=== PATIENT | female | born 1950 | race Caucasian/White ===

== ENCOUNTER → 2017-03-19 | Outpatient (CLI) | payer MEDICARE ==
[2017-03-19 08:45] LABS: CH 30.3; CHCM 33.1; HCT 37.9 % (34.0-46.0); HDW 2.53; HGB 12.3 gm/dL (11.4-16.0); MCH 29.9 pg (25.0-35.0); MCHC 32.4 g/dL (31.0-37.0); MCV 92.1 fL (80.0-100.0); Mean Platelet Volume 6.5; RBC 4.12 m/uL (3.80-5.40); RDW 12.8 % (11.5-15.5); WBC 7.3 k/uL (3.8-10.6)
[2017-03-19 09:03] LABS: Anion Gap 13 mmol/L; Blood Urea Nitrogen 15 mg/dL (7-17); Calcium 9.4 mg/dL (8.4-10.2); Carbon Dioxide 26 mmol/L (22-30); Chloride 100 mmol/L (98-107); Glucose 116 mg/dL (74-99); Non-African American GFR(MDRD) >60 (>60 ml/min/1.73 sqM); Potassium 4.4 mmol/L (3.5-5.1); Sodium 139 mmol/L (137-145)
== END | disposition home or self-care (01) ==
LOC: LABWHC1 08:06
PROVIDERS: ATTEND Internal Medicine Interventional Cardiology
DX: I10 Essential (primary) hypertension (principal)
CPT/HCPCS: 36415; 80048; 85027

== ENCOUNTER → 2017-03-31 | Outpatient (CLI) | payer MEDICARE ==
--- NOTE | 2017-03-31 21:23 | WWHP ---
DATE OF SERVICE: 03/31/2017 CHIEF COMPLAINT: Patient is here for her routine gynecologic exam and mammogram. HPI: This is a 66-year-old G5 G4, P0 with an LMP of 2005. The patient is without gynecologic complaints and denies any postmenopausal bleeding. PAST MEDICAL HISTORY: Chronic hypertension, elevated cholesterol, diverticulosis, aortic aneurysm, which is followed conservatively. Dr. Tinsley is her underwriting technician and she is currently in between primary care physicians in this area. She does have a primary care physician in [place]. MEDICATIONS: 1. Coreg generic 6.25 mg b.i.d. 2. Cozaar generic 100 mg daily. 3. Hydrochlorothiazide 25 mg daily. 4. Atorvastatin 40 mg daily. 5. Aspirin 81 mg daily. 6. Calcium 500 mg b.i.d. 7. Multivitamins daily. ALLERGIES: No known drug allergies. 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 SOCIAL HISTORY: She quit smoking in 1987 and has about 7 to 14 alcoholic drinks per week and denies drug use. She has been since 1972 and is retired. [place] REVIEW OF SYSTEMS: Weight has been stable. She denies respiratory, cardiac, or GI problems. She denies maltreatment or falling. : She denies any problems with urinary incontinence. PHYSICAL EXAM: Blood pressure 136/82. Height 5 feet 7 inches. Weight 254 pounds. Temperature 97.9, pulse 70. This a well-developed, heavyset white female who is alert and oriented x3 in no acute distress. HEENT is within normal limits. NECK: Supple without mass or thyromegaly. CHEST AND LUNGS: Clear to auscultation. HEART: Regular rate and rhythm. Breasts are without mass or discharge. ABDOMEN: Soft, nontender, without palpable masses. PELVIC EXAM: External genitalia reveals mild to moderate atrophy without lesions. Cervix and vagina reveal mild atrophy without lesions. There is no evidence of prolapse. The uterus is midposition, nongravid size and nontender. There are no palpable adnexal masses or tenderness. Rectovaginal exam is negative for mass or tenderness and is negative for occult blood. EXTREMITIES: Nontender. IMPRESSION: A 66-year-old menopausal female with normal gynecologic exam. PLAN: 1. Pap smear was deferred, since she had a normal one less than 2 years ago. 2. Self-breast examination was discussed. 3. Mammogram will be done today. 4. Osteoporosis prevention was discussed. She had a normal bone density test in 2014 and will repeat this in approximately 6 years. 5. I have recommended that she establish with a primary care physician in this area. 6. She will return in one year.
--- NOTE | 2017-04-01 11:44 | MM ---
Reason for exam: screening (asymptomatic). Last mammogram was performed 1 year and 8 months ago. History: Patient is postmenopausal and is nulliparous. Physical Findings: A clinical breast exam by your physician is recommended on an annual basis and results should be correlated with mammographic findings. MG 3D Screening Mammo W/Cad Bilateral CC and MLO view(s) were taken. Prior study comparison: August 06, 2015, bilateral MG screening mammo w CAD. August 09, 2013, bilateral digital screening mammo w/CAD. August 08, 2012, bilateral digital screening mammo w/CAD. Finding: There are typically benign round, diffuse/scattered calcifications in both breasts, group of calcifications middle depth outer aspect slight upper quadrant. New finding and increase in number of calcifications since August 06, 2015, August 09, 2013, and August 08, 2012. ASSESSMENT: Incomplete: need additional imaging evaluation, BI-RAD 0 RECOMMENDATION: Special view mammogram of the right breast. [facility] will attempt to contact patient to return for supplemental views.
== END | disposition home or self-care (01) ==
LOC: WWCWWP 09:48
PROVIDERS: ATTEND Obstetrics & Gynecology
DX: Z12.31 Encounter for screening mammogram for malignant neoplasm of breast (principal)
CPT/HCPCS: 77063; G0202

== ENCOUNTER → 2017-04-02 | Outpatient (CLI) | payer MEDICARE ==
--- NOTE | 2017-04-05 07:20 | MM ---
Reason for exam: additional evaluation requested from abnormal screening. Last mammogram was performed less than 1 month ago. History: Patient is postmenopausal and is nulliparous. Physical Findings: Nurse did not find any significant physical abnormalities on exam. MG 3D Work Up W/Cad RT LM view(s) were taken of the right breast. Prior study comparison: March 31, 2017, bilateral MG 3d screening mammo w/cad. August 06, 2015, bilateral MG screening mammo w CAD. Finding: There are increasing regional calcifications in the right breast. Increase in number of calcifications since March 31, 2017 and August 06, 2015. These results were verbally communicated with the patient and result sheet given to the patient on 04/02/17. ASSESSMENT: Suspicious, BI-RAD 4 RECOMMENDATION: Stereotactic core biopsy of the right breast. Called Dr. Brand with mammographic findings and has scheduled an appointment for the patient for 05/09/17 at 10:[address] Bruno Biopsy scheduled 04/08/17 at 10:00. PRELIMINARY REPORT CALLED AND FAXED TO DR. BRUNO ON 07/11 AT 300/TMP.
== END | disposition home or self-care (01) ==
LOC: RADMAMWWP 10:53
PROVIDERS: ATTEND Obstetrics & Gynecology
DX: R92.8 Other abnormal and inconclusive findings on diagnostic imaging of breast (principal)
CPT/HCPCS: G0206; G0279

== ENCOUNTER → 2017-04-08 | Day surgery (SDC) | payer MEDICARE ==
[2017-04-08 10:31] VITALS: BMI 39.1
--- NOTE | 2017-04-08 12:17 | MM ---
EXAMINATION TYPE: MG stereo VAD BX RT DATE OF EXAM: 04/08/2017 COMPARISON: 04/02/2017, 03/31/2017 CLINICAL HISTORY: Right breast calcification TECHNIQUE: Stereotactic guided core biopsy of right breast. FINDINGS: The procedure of stereotactic guided core biopsy was explained to the patient. Benefits, alternatives, and risks were discussed. An informed consent was then obtained. The shortness pathway for biopsy was chosen. Shortness pathway was chosen. Localization and procedure performed by radiologist. A vacuum assisted biopsy gun was used to obtain multiple core samples. The patient tolerated the procedure well without any immediate complication. The patient was kept in the radiology department for short stay after the procedure and then discharged home in stable condition. Targeted calcifications are identified in specimen mammogram. Post biopsy mammogram shows the clip to appear in satisfactory position relative to the targeted area of concern on the preprocedure images. IMPRESSION: SUCCESSFUL, UNCOMPLICATED STEREOTACTIC GUIDED CORE BIOPSY OF AREA OF CONCERN IN THE right BREAST, FULL PATHOLOGY RESULTS TO FOLLOW. Pathology Results: Benign BREAST, RIGHT, STEREOTACTIC CORE BIOPSY: BENIGN BREAST WITH PROMINENT ADIPOSE TISSUE DEMONSTRATING FAT NECROSIS, FIBROSIS, FIBROPLASIA, VASCULAR PROLIFERATION AND LYMPHOHISTIOCYTIC INFLAMMATION FOCALLY WITH PIGMENT. A SINGLE CALCIFICATION IS IDENTIFIED. PENDING DEEPER SECTIONS. ADDENDUM REPORT BREAST, RIGHT, STEREOTACTIC CORE BIOPSY: BENIGN BREAST WITH PROMINENT ADIPOSE TISSUE DEMONSTRATING FAT NECROSIS, FIBROSIS, FIBROPLASIA, VASCULAR PROLIFERATION , LYMPHOHISTIOCYTIC INFLAMMATION FOCALLY WITH PIGMENT, AND CALCIFICATIONS. Recommendation Follow up mammogram of the right breast in 6 months. MTDD
[2017-04-08 12:19] VITALS: BP 108/71; PULSE 68; RESP 16; TEMP 97.7
== END ==
LOC: RADMAMWWP 09:23
PROVIDERS: ATTEND Surgery
DX: N64.1 Fat necrosis of breast (principal); N60.31 Fibrosclerosis of right breast; N64.89 Other specified disorders of breast; R92.8 Other abnormal and inconclusive findings on diagnostic imaging of breast
CPT/HCPCS: 88305; 19081; A4648

== ENCOUNTER → 2018-03-14 | Outpatient (CLI) | payer MEDICARE ==
[2018-03-14 07:29] LABS: HGB 12.7 gm/dL (11.4-16.0); MCH 28.8 pg (25.0-35.0); MCHC 32.4 g/dL (31.0-37.0); MCV 88.8 fL (80.0-100.0); Mean Platelet Volume 6.7; Platelet Count 298 k/uL (150-450); RBC 4.39 m/uL (3.80-5.40); RDW 13.5 % (11.5-15.5); WBC 7.7 k/uL (3.8-10.6)
[2018-03-14 07:47] LABS: Anion Gap 11 mmol/L; Blood Urea Nitrogen 18 mg/dL (7-17); Calcium 9.9 mg/dL (8.4-10.2); Carbon Dioxide 30 mmol/L (22-30); Chloride 100 mmol/L (98-107); Cholesterol 177 mg/dL (<200); Glucose 114 mg/dL (74-99); HDL Cholesterol 62 mg/dL (40-60); LDL Cholesterol,Calculated 84 mg/dL (0-99); Potassium 4.6 mmol/L (3.5-5.1); Sodium 141 mmol/L (137-145); Triglycerides 157 mg/dL (<150)
== END | disposition home or self-care (01) ==
LOC: LABWHC1 07:06
PROVIDERS: ATTEND Internal Medicine Interventional Cardiology
DX: E78.2 Mixed hyperlipidemia (principal)
CPT/HCPCS: 36415; 80048; 80061; 85027

== ENCOUNTER 2018-04-20 18:58 | Emergency (ER) | payer MEDICARE ==
[2018-04-20 19:39] VITALS: RESP 18
--- NOTE | 2018-04-20 20:45 | XR ---
PROCEDURE: XR shoulder complete LT 3 views DATE AND TIME: 04/20/2018 8:38 PM REFERRING PHYSICIAN: Carlito Myles CLINICAL INDICATION: PHH, Pain TECHNIQUE: Department protocol. COMPARISON: None FINDINGS: There is a dislocated fracture involving the anatomic neck of the humerus. The humeral head remains congruent within the bony glenoid. There is one shaft width anteromedial displacement of the humeral shaft, with 2 cm override. The acromioclavicular joint is congruent and intact. No other fractures. IMPRESSION: FRACTURE/DISLOCATION LEFT HUMERAL NECK.
--- NOTE | 2018-04-20 20:49 | ED ---
General Adult HPI - General Chief complaint: Fall Stated complaint: LEFT SHOULDER INJURY FROM FALL Time Seen by Provider: 04/20/18 20:28 Source: patient, RN notes reviewed Mode of arrival: wheelchair Limitations: no limitations - History of Present Illness Initial comments: Patient's a 67-year-old female presented to the emergency room today with a chief complaint of an injury to the left shoulder. She does admit that approximately an hour before arrival she tripped on a rug coming into the house falling forward into a wall hitting the left shoulder. She denies any specific head injury or loss of consciousness. She states she's not on a blood thinner. She admits to pain locally to the left shoulder. Patient denies any other complaints or symptoms. Patient denies any recent fever, chills, shortness of breath, chest pain, back pain, nausea or vomiting, numbness or tingling, headaches or visual changes, or any other complaints. - Related Data Home Medications Medication Instructions Recorded Confirmed Aspirin [Adult Low Dose Aspirin EC] 81 mg PO DAILY 04/07/17 04/20/18 Atorvastatin [Lipitor] 40 mg PO HS 04/07/17 04/20/18 Carvedilol [Coreg] 6.25 mg PO HS 04/07/17 04/20/18 Losartan Potassium 1 tab PO DAILY 04/07/17 04/20/18 Milk Thistle 150 mg PO DAILY 04/07/17 04/20/18 Multivitamin [Multiple Vitamins] 1 each PO DAILY 04/07/17 04/20/18 [place]-3 Fatty Acids/Fish Oil [Fish 1 each PO DAILY 04/07/17 04/20/18 Oil 1,000 mg Capsule] Calcium Carbonate/Vitamin D3 1 tab PO DAILY 04/20/18 04/20/18 [Calcium 500-Vit D3 600 Tablet] Cyanocobalamin (Vitamin B-12) 1,000 mcg PO DAILY 04/20/18 04/20/18 [Vitamin B-12] Hydrochlorothiazide 25 mg PO DAILY 04/20/18 04/20/18 Previous Rx's Medication Instructions Recorded Hydrocodone/Acetaminophen [[place] 1 each PO Q6HR PRN #12 tab 04/20/18 5-325] Allergies Allergy/AdvReac Type Severity Reaction Status Date / Time No Known Allergies Allergy Verified 04/20/18 20:13 Review of Systems ROS Statement: Those systems with pertinent positive or pertinent negative responses have been documented in the HPI. ROS Other: All systems not noted in ROS Statement are negative. Past Medical History Past Medical History: Hypertension History of Any Multi-Drug Resistant Organisms: None Reported Past Surgical History: Orthopedic Surgery Additional Past Surgical History / Comment(s): cataracts 2013. Knee surgery 2005 and 2008 Past Anesthesia/Blood Transfusion Reactions: No Reported Reaction Past Psychological History: No Psychological Hx Reported Smoking Status: Never smoker Past Alcohol Use History: Occasional Past Drug Use History: None Reported General Exam - General Exam Comments Initial Comments: General: The patient is awake and alert, in no distress, and does not appear acutely ill. Neck: The neck is supple, there is no tenderness or JVD. Cardiovascular: There is a regular rate and rhythm. No murmur, rub or gallop is appreciated. Respiratory: Lungs are clear to auscultation, respirations are non-labored, breath sounds are equal. No wheezes, stridor, rales, or rhonchi. Musculoskeletal: Patient does have tenderness over the proximal humerus on the left. Sensations are intact. Radial pulses 2+. Patient shows good range of motion of the left wrist and hand able to flex and extend. Neurological: A&O x 3. CN II-XII intact, There are no obvious motor or sensory deficits. Coordination appears grossly intact. Speech is normal. Skin: Skin is warm and dry and no rashes or lesions are noted. Psychiatric: Normal mood and affect. Limitations: no limitations Course Vital Signs 04/20/18 19:36 Temperature 98.4 F Pulse Rate 72 Respiratory 18 Rate Blood Pressure 121/81 O2 Sat by Pulse 92 L Oximetry Medical Decision Making - Medical Decision Making Patient's x-rays reviewed and does show a proximal humerus fracture with displacement at the anatomical neck. Case was discussed with orthopedics on- call Dr. Phillip who reviewed the films and recommends a shoulder immobilizer and discharged the patient to follow-up the office over the next 2 days. Patient given dose of pain medication here in the ER given shoulder immobilizer. Patient is neurovascularly intact. Will be sent home with a prescription for [place] for pain. Patient advised to follow-up with orthopedics and return for any other concerns. Disposition Clinical Impression: Fall, Proximal humerus fracture Disposition: HOME SELF-CARE Condition: Good Instructions: Proximal Humerus Fracture (ED) Additional Instructions: Please follow-up with orthopedics tomorrow as discussed. Please use shoulder immobilizer when up and moving around. Please use pain medication as prescribed and return to the emergency room for any other concerns. Prescriptions: Hydrocodone/Acetaminophen [[place] 5-325] 1 each PO Q6HR PRN #12 tab PRN Reason: Pain Is patient prescribed a controlled substance at d/c from ED?: Yes When asked, does pt state using other controlled substances?: No If prescribed controlled substance>3 days was MAPS reviewed?: Prescribed <3 Days If Rx opioid, was Start Talking consent form obtained?: Yes Referrals: Sb Roman MD [Primary Care Provider] - 1-2 days Elías Phillip DO [Doctor of Osteopathic Medicine] - 1-2 days Time of Disposition: 21:34
[2018-04-20] MEDS ORDERED: MORPHINE SULFATE 2 MG/ML SYRINGE IM STA (21:23)
[2018-04-20 22:10] VITALS: BP 145/74; PULSE 74; TEMP 98.6
== END 2018-04-20 22:11 | disposition home or self-care (01) ==
LOC: EC 18:58
DX: S42.292A Other displaced fracture of upper end of left humerus, initial encounter for closed fracture (principal); I10 Essential (primary) hypertension; Z79.82 Long term (current) use of aspirin; Z79.899 Other long term (current) drug therapy; W18.09XA Striking against other object with subsequent fall, initial encounter; Y93.01 Activity, walking, marching and hiking; Y92.89 Other specified places as the place of occurrence of the external cause
CPT/HCPCS: 73030; 99283; 96372; J2270

== ENCOUNTER → 2018-04-25 | Outpatient (CLI) | payer MEDICARE ==
--- NOTE | 2018-04-25 12:47 | CT ---
EXAMINATION TYPE: CT shoulder LT wo con DATE OF EXAM: 04/25/2018 COMPARISON: Left shoulder dated 04/20/2018 HISTORY: Fracture CT DLP: 496 mGycm Automated exposure control for dose reduction was used. Helical acquisition through the left shoulder , coronal and sagittal reconstructions FINDINGS: There is a comminuted proximal humeral fracture with lateral angulation and bayonet apposition. Local soft tissue swelling is present. Distal fracture fragment is inferiorly displaced. No dislocation. IMPRESSION: COMMINUTED DISPLACED FRACTURE NOTED ON PLAIN FILM.
== END | disposition home or self-care (01) ==
LOC: RADCTMAIN 10:21
PROVIDERS: ATTEND Orthopaedic Surgery Orthopaedic Surgery of the Spine
DX: S42.202A Unspecified fracture of upper end of left humerus, initial encounter for closed fracture (principal)

== ENCOUNTER 2018-04-29 08:26 | Day surgery (SDC) | payer MEDICARE ==
[2018-04-26 11:29] VITALS: BMI 39.1
[~2018-04-29 08:26] MED LIST: ACETAMINOPHEN TAB 500 MG TAB PO ONE; DEXAMETHASONE SOD PHOSPHATE 10 MG/ML 1 ML VIAL IV ONE; HYDROmorphone 0.5 MG/0.5 ML SYRINGE IVP PRN; LIDOCAINE 1% 20 ML VIAL (10MG/ML) FOR IV START INTRADERMA PRN; MIDAZOLAM 2 MG/2 ML VIAL IV PRN; ONDANSETRON 4 MG/2 ML VIAL IVP ONE; SCOPOLAMINE 1.5MG/72HR PATCH TRANSDERM ONE; ceFAZolin IN SWFI 2 GM/20 ML SYRINGE IVP ONE
[2018-04-29] MEDS: LACTATED RINGERS 1,000 ML IV SCH (08:46)
[2018-04-29] MEDS ORDERED: fentaNYL (PF) 50 MCG/ML 2 ML AMP ONE ×2 (09:10→10:09)
[2018-04-29] MEDS ORDERED: PHENYLEPHRINE-0.9% NACL SYG 1 MG/10 ML SYRINGE ONE (10:09)
[2018-04-29] MEDS ORDERED: SUCCINYLCHOLINE CHLORIDE 100 MG/5 ML SYR IV ONE (10:09)
[2018-04-29] MEDS ORDERED: GLYCOPYRROLATE 0.2 MG/ML 2 ML VIAL ONE (10:09)
[2018-04-29] MEDS ORDERED: ROCURONIUM BROMIDE 10 MG/ML 10 ML VIAL IV ONE (10:09)
[2018-04-29] MEDS ORDERED: PROPOFOL 10 MG/ML 20 ML VIAL IV ONE (10:09)
[2018-04-29] MEDS ORDERED: NEOSTIGMINE 1 MG/ML 10 ML VIAL ONE (10:09)
[2018-04-29] MEDS ORDERED: ceFAZolin 1,000 MG in SODIUM CHLORIDE 0.9% 1,000 ML IRRIGATION ONE (10:49)
[2018-04-29] MEDS ORDERED: BUPIVACAINE (PF) 0.5% 30 ML VIAL SQ ONE (11:39)
[2018-04-29] MEDS ORDERED: ONDANSETRON 4 MG/2 ML VIAL IVP PRN (12:30)
[2018-04-29] MEDS ORDERED: diphenhydrAMINE 25 MG CAP PO PRN (12:30)
[2018-04-29] MEDS ORDERED: SENNOSIDES-DOCUSATE SODIUM 1 EACH TAB PO PRN (12:30)
[2018-04-29] MEDS ORDERED: HYDROcodone/APAP 5-325MG 1 EACH TAB PO PRN ×2 (12:30)
[2018-04-29] MEDS ORDERED: HYDROmorphone 0.5 MG/0.5 ML SYRINGE IVP PRN ×3 (12:30)
--- NOTE | 2018-04-29 12:45 | FL ---
EXAMINATION TYPE: FL guidance operating room, XR shoulder limited LT DATE OF EXAM: 04/29/2018 COMPARISON: NONE HISTORY: 67-year-old female left shoulder fracture FINDINGS: Imaging during plate and screw fixation of the proximal left humerus. FLUOROSCOPY Fluoroscopy time of 51 seconds was used during plate and screw fixation left shoulder fracture. 2 im age/s document/s the procedure. IMPRESSION: Intraoperative fluoroscopy as above.
[2018-04-29] MEDS ORDERED: CYANOCOBALAMIN 500 MCG TAB PO SCH (15:00)
[2018-04-29] MEDS ORDERED: ceFAZolin 3 GM in SODIUM CHLORIDE 0.9% 100 ML IVPB SCH (16:00)
[2018-04-29] MEDS: ceFAZolin IN SWFI 2 GM/20 ML SYRINGE IVP SCH (16:34)
[2018-04-29] MEDS: CARVEDILOL 6.25 MG TAB PO SCH (16:35)
[2018-04-29] MEDS ORDERED: ATORVASTATIN 40 MG TAB PO SCH (21:00)
--- NOTE | 2018-04-29 23:00 | P.CONS ---
History of Present Illness - Reason for Consult Consult date: 04/29/18 Medical management of hypertension and other medical problems - Chief Complaint Left shoulder surgery - History of Present Illness Patient is a 67-year-old female with a known history of hypertension, hyperlipidemia and history of coronary artery disease was admitted to the hospital for left shoulder rotator cuff repair. Patient had mechanical fall on 04/18/2018 when she slipped and fell. Patient tolerated the procedure. Currently patient is complaining of left shoulder pain which is fairly controlled with pain medications. No chest pain or shortness of breath. No headache or dizziness or lightheadedness. No nausea vomiting or abdominal pain. Review of Systems Constitutional: Patient denies any fever or chills . No generalized weakness or weight loss. Abdomen: Patient denied nausea vomiting and diarrhea and abdominal pain. Cardiovascular: Patient denies any chest pain or short of breath no palpitations. Respiratory: patient denied any cough is from production. No shortness of breath Neurologic: Patient denied any numbness or tingling headache. Musculoskeletal: Left shoulder pain. Skin: Negative Psychiatric: Negative Endocrine: No heat or cold intolerance. No recent weight gain. Genitourinary: No dysuria or hematuria. All other 14 point ROS negative except the above Past Medical History Past Medical History: Hyperlipidemia, Hypertension, Osteoarthritis (OA) Additional Past Medical History / Comment(s): varicose veins, diverticulitis, fell and injured left shoulder 04/18/18-has sling on History of Any Multi-Drug Resistant Organisms: None Reported Past Surgical History: Breast Surgery, Joint Replacement, Tonsillectomy Additional Past Surgical History / Comment(s): sarah knee replacements, hemorrhoidectomy, sarah cataracts, breast biopsy Past Anesthesia/Blood Transfusion Reactions: No Reported Reaction Smoking Status: Former smoker - Past Family History Mother Family Medical History: Cancer Medications and Allergies Home Medications Medication Instructions Recorded Confirmed Type Aspirin [Adult Low Dose Aspirin EC] 81 mg PO DAILY 04/07/17 04/29/18 History Atorvastatin [Lipitor] 40 mg PO HS 04/07/17 04/29/18 History Carvedilol [Coreg] 6.25 mg PO BID 04/07/17 04/29/18 History Milk Thistle 150 mg PO DAILY 04/07/17 04/29/18 History Multivitamin [Multiple Vitamins] 1 each PO DAILY 04/07/17 04/29/18 History [place]-3 Fatty Acids/Fish Oil [Fish 1,000 mg PO DAILY 04/07/17 04/29/18 History Oil 1,000 mg Capsule] Calcium Carbonate/Vitamin D3 1 tab PO DAILY 04/20/18 04/29/18 History [Calcium 500-Vit D3 600 Tablet] Cyanocobalamin (Vitamin B-12) 1,000 mcg PO Q48H 04/20/18 04/29/18 History [Vitamin B-12] Hydrochlorothiazide 25 mg PO DAILY 04/20/18 04/29/18 History Hydrocodone/Acetaminophen [[place] 1 each PO Q6HR PRN #12 tab 04/20/18 04/29/18 Rx 5-325] Cyclobenzaprine [Flexeril] 10 mg PO TID 04/26/18 04/29/18 History Losartan Potassium [Cozaar] 100 mg PO DAILY 04/29/18 04/29/18 History Allergies Allergy/AdvReac Type Severity Reaction Status Date / Time nickel Allergy Rash/Hives Verified 04/29/18 08:38 Physical Exam Vitals: Vital Signs Temp Pulse Pulse Resp BP BP Pulse Ox 04/29/18 13:15 72 18 113/56 98 04/29/18 13:00 78 18 104/56 98 04/29/18 12:45 83 14 114/57 96 04/29/18 12:35 97.7 F 84 16 109/56 98 04/29/18 09:25 80 16 102/49 94 L 04/29/18 08:44 98.1 F 95 16 150/72 94 L Intake and Output 04/28/18 04/29/18 04/29/18 22:59 06:59 14:59 Intake Total 1101 Output Total 200 Balance 901 Intake: IV 1101 Output: Estimated Blood Loss 200 PHYSICAL EXAMINATION: Patient is lying in the bed comfortably, no acute distress, awake alert and oriented.. HEENT: Normocephalic. Neck is supple. Pupils reactive. Nostrils clear. Oral cavity is moist. Ears reveal no drainage. Neck reveals no JVD, carotid bruits, or thyromegaly. CHEST EXAMINATION: Trachea is central. Symmetrical expansion. Bibasilar diminished air entry. Lung barraza clear to auscultation and percussion. CARDIAC: Normal S1, S2 with no gallops. No murmurs ABDOMEN: Soft. Bowel sounds normal. No organomegaly. No abdominal bruits. Extremities: reveal no edema. No clubbing or cyanosis Neurologically awake, alert, oriented x3 with well-coordinated movements. No focal deficits noted Skin: No rash or skin lesions. Psychiatric: Coperative. Nonsuicidal Musculoskeletal: Left shoulder sling status post surgery. Decreased range of motion. Results CBC & Chem 7: 04/29/18 08:47 Labs: Abnormal Lab Results - Last 24 Hours (Table) 04/29/18 Range/Units 08:47 Potassium 3.3 L (3.5-5.1) mmol/L Assessment and Plan Assessment: Fracture/dislocation left humeral neck. Status post ORIF on 04/29/2018 Hypertension Hyperlipidemia Osteoarthritis of multiple joints Coronary artery disease Varicose veins and also history of diverticulitis DVT prophylaxis Plan: Patient be continued on pain management and bowel regimen. DVT prophylaxis. Encourage ambulation. Continue with home blood pressure medications. Will follow closely and further recommendations based on the clinical course. Thank you for your consult Time with Patient: Greater than 30
[2018-04-30] MEDS: ceFAZolin IN SWFI 2 GM/20 ML SYRINGE IVP SCH (01:25)
[2018-04-30] MEDS: LACTATED RINGERS 1,000 ML IV SCH (05:58)
[2018-04-30 06:28] LABS: Basophils % (A) 0 %; Eosinophils # (A) 0.1 k/uL (0-0.7); Eosinophils % (A) 1 %; HCT 31.4 % (34.0-46.0); HGB 10.2 gm/dL (11.4-16.0); Lymphocytes # (A) 1.5 k/uL (1.0-4.8); Lymphocytes % (A) 16 %; MCH 29.1 pg (25.0-35.0); MCHC 32.4 g/dL (31.0-37.0); MCV 89.8 fL (80.0-100.0); Mean Platelet Volume 6.7; Monocytes # (A) 0.7 k/uL (0-1.0); Monocytes % (A) 7 %; Neutrophils # (A) 7.3 k/uL (1.3-7.7); Neutrophils % (A) 75 %; Platelet Count 313 k/uL (150-450); RDW 13.8 % (11.5-15.5); WBC 9.7 k/uL (3.8-10.6)
[2018-04-30 06:34] VITALS: BP 130/82; PULSE 88; RESP 18; TEMP 97.4
[2018-04-30 06:35] LABS: Anion Gap 12 mmol/L; Blood Urea Nitrogen 10 mg/dL (7-17); Calcium 9.4 mg/dL (8.4-10.2); Carbon Dioxide 30 mmol/L (22-30); Chloride 95 mmol/L (98-107); Glucose 108 mg/dL (74-99); Potassium 3.8 mmol/L (3.5-5.1); Sodium 137 mmol/L (137-145)
[2018-04-30] MEDS: CARVEDILOL 6.25 MG TAB PO SCH (08:05)
[2018-04-30] MEDS ORDERED: NON-FORMULARY DRUG (Milk Thistle [Milk Thistle] 150 MG) PO SCH (09:00)
[2018-04-30] MEDS ORDERED: FATTY ACIDS PO SCH (09:00)
[2018-04-30] MEDS ORDERED: LOSARTAN 50 MG TAB PO SCH (09:00)
[2018-04-30] MEDS ORDERED: CALCIUM CARB-VIT D 500MG-200UN 1 EACH TAB PO SCH (09:00)
[2018-04-30] MEDS ORDERED: ENOXAPARIN 30 MG/0.3 ML SYRINGE SQ SCH (09:00)
[2018-04-30] MEDS ORDERED: ASPIRIN 81 MG PO SCH (09:00)
[2018-04-30] MEDS ORDERED: FISH OIL PO SCH (09:00)
[2018-04-30] MEDS ORDERED: OMEGA PO SCH (09:00)
--- NOTE | 2018-04-30 11:28 | P.DS ---
Providers Expected date of discharge: 04/30/18 Attending physician: Jamie Marcos Consults: 04/29/18 12:30 Consult Physician Routine Consulting Provider: Sb Roman Consult Reason/Comments: Medical management Do you want consulting provider notified?: Yes Primary care physician: Stated None Hospital Course: This is a 67-year-old female who is admitted for open reduction internal fixation of the left proximal humerus on 04/29/2018. The procedures performed without complication or sequelae. Patient's doing well postoperatively. Vital signs are stable on postoperative day #1. The patient may be discharged to home today in good condition. Patient Condition at Discharge: Good Plan - Discharge Summary New Discharge Prescriptions: Continue Milk Thistle 150 mg PO DAILY Multivitamin [Multiple Vitamins] 1 each PO DAILY Atorvastatin [Lipitor] 40 mg PO HS Carvedilol [Coreg] 6.25 mg PO BID Aspirin [Adult Low Dose Aspirin EC] 81 mg PO DAILY [place]-3 Fatty Acids/Fish Oil [Fish Oil 1,000 mg Capsule] 1,000 mg PO DAILY Hydrochlorothiazide 25 mg PO DAILY Cyanocobalamin (Vitamin B-12) [Vitamin B-12] 1,000 mcg PO Q48H Calcium Carbonate/Vitamin D3 [Calcium 500-Vit D3 600 Tablet] 1 tab PO DAILY Hydrocodone/Acetaminophen [[place] 5-325] 1 each PO Q6HR PRN #12 tab PRN Reason: Pain Losartan Potassium [Cozaar] 100 mg PO DAILY Discontinued Cyclobenzaprine [Flexeril] 10 mg PO TID Discharge Medication List Aspirin [Adult Low Dose Aspirin EC] 81 mg PO DAILY 04/07/17 [History] Atorvastatin [Lipitor] 40 mg PO HS 04/07/17 [History] Carvedilol [Coreg] 6.25 mg PO BID 04/07/17 [History] Milk Thistle 150 mg PO DAILY 04/07/17 [History] Multivitamin [Multiple Vitamins] 1 each PO DAILY 04/07/17 [History] [place]-3 Fatty Acids/Fish Oil [Fish Oil 1,000 mg Capsule] 1,000 mg PO DAILY 04/07 [History] Calcium Carbonate/Vitamin D3 [Calcium 500-Vit D3 600 Tablet] 1 tab PO DAILY [History] Cyanocobalamin (Vitamin B-12) [Vitamin B-12] 1,000 mcg PO Q48H 04/20/18 [History ] Hydrochlorothiazide 25 mg PO DAILY 04/20/18 [History] Hydrocodone/Acetaminophen [[place] 5-325] 1 each PO Q6HR PRN #12 tab 04/20/18 [Rx] Losartan Potassium [Cozaar] 100 mg PO DAILY 04/29/18 [History] Follow up Appointment(s)/Referral(s): Sofia Espinosa, PAC [PHYSICIAN [employer]ER] - 2 Weeks Activity/Diet/Wound Care/Special Instructions: Maintain sling. May shower if no drainage from incision. May perform gentle pendulum exercises. Discharge Disposition: HOME SELF-CARE
[2018-04-30] MEDS ORDERED: MULTIVITAMINS, THERA 1 EACH TAB PO SCH (12:00)
--- NOTE | 2018-04-30 22:52 | P.PN ---
Subjective Progress Note Date: 04/30/18 Principal diagnosis: Left shoulder surgery ORIF Patient is a 67-year-old female with a known history of hypertension, hyperlipidemia and history of rapid heart rate was admitted to the hospital for left shoulder rotator cuff repair. Patient had mechanical fall on 04/18/2018 when she slipped and fell. Patient tolerated the procedure. Currently patient is complaining of left shoulder pain which is fairly controlled with pain medications. No chest pain or shortness of breath. No headache or dizziness or lightheadedness. No nausea vomiting or abdominal pain. 04/30/2018 Patient denied any complaints of chest pain or shortness of breath. Left shoulder pain is much improved and is on sling at this time. No acute overnight issues. Patient is being discharged home today. Discharge medication reconciliation was done. All other review of systems negative except the above Objective - Vital Signs Vital signs: Vital Signs Temp 97.4 F L 04/30/18 06:34 Pulse 88 04/30/18 06:34 Resp 18 04/30/18 06:34 BP 130/82 04/30/18 06:34 Pulse Ox 94 L 04/30/18 06:34 Intake & Output 04/29/18 04/30/18 04/30/18 18:59 06:59 18:59 Intake Total 1101 Output Total 200 Balance 901 Intake: IV 1101 Output: Estimated Blood Loss 200 Other: Voiding Method Bedside Commode Bedside Commode # Voids 1 1 - Exam PHYSICAL EXAMINATION: Patient is lying in the bed comfortably, no acute distress, awake alert and oriented.. HEENT: Normocephalic. Neck is supple. Pupils reactive. Nostrils clear. Oral cavity is moist. Ears reveal no drainage. Neck reveals no JVD, carotid bruits, or thyromegaly. CHEST EXAMINATION: Trachea is central. Symmetrical expansion. Bibasilar diminished air entry. Lung barraza clear to auscultation and percussion. CARDIAC: Normal S1, S2 with no gallops. No murmurs ABDOMEN: Soft. Bowel sounds normal. No organomegaly. No abdominal bruits. Extremities: reveal no edema. No clubbing or cyanosis Neurologically awake, alert, oriented x3 with well-coordinated movements. No focal deficits noted Skin: No rash or skin lesions. Psychiatric: Coperative. Nonsuicidal Musculoskeletal: Left shoulder sling status post surgery. Decreased range of motion. - Labs CBC & Chem 7: 04/30/18 05:58 04/30/18 05:58 Labs: Abnormal Lab Results - Last 24 Hours (Table) 04/30/18 04/30/18 Range/Units 05:58 05:58 RBC 3.50 L (3.80-5.40) m/uL Hgb 10.2 L (11.4-16.0) gm/dL Hct 31.4 L (34.0-46.0) % Chloride 95 L (98-107) mmol/L Glucose 108 H (74-99) mg/dL Assessment and Plan Assessment: Fracture/dislocation left humeral neck. Status post ORIF on 04/29/2018 Hypertension Hyperlipidemia Osteoarthritis of multiple joints History of rapid heart rate Varicose veins and also history of diverticulitis DVT prophylaxis Plan: Patient be continued on pain management and bowel regimen. DVT prophylaxis. Encourage ambulation. Continue with home blood pressure medications\ Patient is being discharged home today. Time with Patient: Greater than 30
--- NOTE | 2018-05-02 10:34 | P.ONQ ---
Anesthesiology Proc Note - PNB - Peripheral Nerve Block Performed Left Interscalene Single Time Out Performed: Yes Procedure Start Time: :11 Procedure Stop Time: :16 Indication: Acute Post-Operative Pain, Requested by physician Sedation Type: Sedate with meaningful contact maintained Preparation: Sterile Prep Position: Supine Needle Size: 50mm (2") Needle Gauge: 21 Technique: Ultrasound Injectate: 0.5% Ropivacaine (see comment for volume) (ropi .5% 30cc) Blood Aspirated: No Pain Paresthesia on Injection Noted: No Resistance on Injection: Normal Events: Uneventful and Well Tolerated
--- NOTE | 2018-05-23 13:13 | P.OP ---
Date of Procedure: 04/29/18 Procedure(s) Performed: ORIF proximal humerus fracture LEFT Arthrex titanium plate No RC tear PREOPERATIVE DIAGNOSES: 1. Left shoulder proximal humerus fracture, 2 part POSTOPERATIVE DIAGNOSES: 1. Left shoulder proximal humerus fracture, 2 part 2. Left shoulder rotator cuff noted to be intact PROCEDURES PERFORMED: 1. 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 DISPOSITION: To post-anesthesia care unit INDICATIONS: Mrs. De Oliveira is a 67 year old female with a history of falling and sustaining a left shoulder proximal humerus fracture. The fracture is displaced and has been analyzed by computed tomography scan, for preoperative planning. I have advised reduction and fixation of the proximal humerus fracture using hardware. I have described the steps of the operation as well as potential risks and complications and the patient wishes to proceed. These risks and potential complications are inclusive of, but not limited to: Bleeding , infection, scarring, discomfort, blood vessel and/or nerve damage, stiffness, hardware irritation, malunion, nonunion, arthritis, further fracture, rotator cuff injury, muscular injury to the deltoid, need for prolonged physical therapy , and other risks, including . I have also explained the seriousness of this kind of fracture and the resultant predictable stiffness and disability that results typically from this kind of fracture even despite modern surgical treatment. The patient wishes to proceed and has signed the consent form. PROCEDURE: After appropriate consent was obtained, the patient was taken to the operating room placed in the supine position. Anesthesia was initiated, and after confirmation of adequate anesthesia, the patient was carefully positioned in the beachchair position. Care was taken to make sure that all pressure points were adequately padded. A small bump was placed beneath the operative scapula. Prepping and draping were completed in the usual aseptic fashion, with the arm draped free, using ChloraPrep. Timeout was called, confirming patient identity, side, procedure, and administration of antibiotics. Standard deltopectoral incision was created with a #10 blade from the inferior border of the clavicle, across the medial aspect of the coracoid process, and down to the deltoid insertion of the humerus. Total size of the incision was approximately 7 inches. The incision was deepened using Bovie electrocautery and meticulous hemostasis was obtained. Subcutaneous dissection was carried down to muscular fascia. The cephalic vein was identified and retracted along with the deltoid laterally. Muscular perforators into the pectoralis muscle were carefully identified and cauterized. The deltopectoral interval was then carefully and bluntly and mobilization of the deep surface of the deltoid was accomplished using a Davis elevator. A deltoid retractor was then placed and manual retraction of the pectoralis was performed. Standard self- retaining retractors were applied in the tissues the red stripe adjacent to the strap tendons was incised using cautery and self-retaining retractor was applied beneath the strap tendons. Excellent visualization was accomplished with this method and a small portion of the super area or aspect of the pectoralis tendon was released for good exposure to the humerus. The fracture was identified and organizing hematoma was removed. Direct visualization of the rotator cuff was accomplished by removing subdeltoid and subacromial bursa as necessary. There was no evidence of significant rotator cuff tear or chronic impingement syndrome. The fracture was carefully mobilized with attention to produce as little devascularization of the fragments as possible. Therefore, soft tissue attachments to the fragments were left intact as much as possible. C-arm imaging was used to assess reduction of the fracture. The shaft fragment was realigned with the humeral head fragment using a sloan elevator on the medial aspect of the humeral shaft as well as gentle manipulation of the shoulder and proximal fragments. Once an acceptable reduction had been obtained with fluoroscopy, provisional pin fixation was performed and the reduction was rechecked. An Arthrex proximal humeral periarticular plate was inserted with the posterior portion of the buttress against the greater tuberosity and the medial portion of the plate just lateral to the bicipital groove. Care was taken to make sure that the biceps tendon was not trapped beneath the plate or in the fracture. The plate was positioned superiorly or inferiorly as needed to reach an optimal position. This was assessed using C-arm imaging. A preliminary pin was placed and C-arm images were taken with gentle rotation of the of the shoulder to assess in multiple planes. The slotted screw hole was then utilized to place a 3.5 mm bicortical fully threaded cortical screw. The screw was used to bring the shaft to the plate and provide buttress support proximally against the humeral head. The fracture further reduced very nicely with this step. C-arm imaging confirmed proper placement and orientation of the hardware. Proximal locking screws were then placed. All screws were measured for depth and 6 mm was subtracted from the measurement so that there would be no chance of inadvertent joint penetration of the screw head. A final locking screw was placed in the distal hole of the plate to further secure the shaft fragment. Final C-arm imaging in both the AP plane and a rotated view to see a lateral projection of the proximal humerus, showed excellent alignment of the fracture. All screws were critically evaluated to make sure that there was no significant chance of screw penetration even with some anticipated subsidence of the humeral head. Gentle range of motion was performed in flexion, abduction , and rotation to assess stability of the fracture site. The fracture was completely stable, including the greater tuberosity minimally displaced fragment. Thorough irrigation and final hemostasis was obtained, and final C- arm images were taken and saved. The wound was then thoroughly irrigated with normal saline and the portion of the lateralis tendon that was released for exposure was repaired using 0 Vicryl suture. Closure of the deltopectoral interval was performed using 0 Vicryl suture followed by 2-0 Vicryl suture in subcu tissues and standard skin closure using Dermabond. Sterile dressing was then applied and the patient's arm was placed into a sling. Patient tolerated the procedure well and taken to recovery room in stable condition. Sponge and needle counts were correct.
== END 2018-04-30 13:00 | disposition home or self-care (01) ==
LOC: OR 08:26 → 4MS4W 12:22 → OR 04-30 13:00
PROVIDERS: ATTEND Orthopaedic Surgery
DX: S42.222A 2-part displaced fracture of surgical neck of left humerus, initial encounter for closed fracture (principal); W01.198A Fall on same level from slipping, tripping and stumbling with subsequent striking against other object, initial encounter; I10 Essential (primary) hypertension; I42.9 Cardiomyopathy, unspecified; E78.00 Pure hypercholesterolemia, unspecified; E66.9 Obesity, unspecified; Z68.39 Body mass index [BMI] 39.0-39.9, adult; M19.90 Unspecified osteoarthritis, unspecified site; I25.10 Atherosclerotic heart disease of native coronary artery without angina pectoris; I83.90 Asymptomatic varicose veins of unspecified lower extremity; Z96.653 Presence of artificial knee joint, bilateral; Z79.1 Long term (current) use of non-steroidal anti-inflammatories (NSAID); Z79.82 Long term (current) use of aspirin; Z79.891 Long term (current) use of opiate analgesic; Z79.899 Other long term (current) drug therapy; Z91.048 Other nonmedicinal substance allergy status; Z87.891 Personal history of nicotine dependence
CPT/HCPCS: 94760; 64415; 80048; 84132; 85025; 73020; 23615; C1713; J2250; J1100; J2710; J2405; J0690 ×3; J3010; J1650; J2370; J0330; J2704; J1170

== ENCOUNTER → 2018-07-26 | Outpatient (CLI) | payer MEDICARE ==
[2018-07-26 08:17] VITALS: BP 143/93; PULSE 69; TEMP 97.6; BMI 38.2
--- NOTE | 2018-07-26 08:59 | P.HPOB ---
History of Present Illness H&P Date: 07/26/18 Chief Complaint: The patient is here for her routine gynecologic exam and mammogram. This is a 67-year-old [id number] an LMP of 2004. The patient is without gynecologic complaints. Review of Systems She has lost about 10 pounds over the last year and she attributes this to her shoulder injury and surgery during the past year. She denies respiratory, cardiac and G.I. problems. She denies maltreatment. She did fall after tripping which resulted in a shoulder injury during the past year. : she denies any significant problems with urinary leakage. Past Medical History Past Medical History: Hyperlipidemia, Hypertension, Osteoarthritis (OA) Additional Past Medical History / Comment(s): varicose veins, aortic aneurysm, diverticulosis, fell and injured left shoulder 04/18/18. Her primary care physician is in [place]. 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 She has had 4- 2nd trimester miscarriages in the past. History of Any Multi-Drug Resistant Organisms: None Reported Past Surgical History: Breast Surgery, Joint Replacement, Tonsillectomy Additional Past Surgical History / Comment(s): sarah knee replacements, hemorrhoidectomy, sarah cataracts, breast biopsy,left proximal humerus, colonoscopy 2014(4th), cervical cerclages. Past Anesthesia/Blood Transfusion Reactions: No Reported Reaction Past Psychological History: No Psychological Hx Reported Smoking Status: Former smoker (Quit 1987) Past Alcohol Use History: Occasional (About 8 per week) Past Drug Use History: None Reported Additional History: She has been since 1972 and is retired. She north in [place], [place]. - Past Family History Mother Family Medical History: Cancer, Dementia Father Family Medical History: Myocardial Infarction ([place]) Brother(s) Family Medical History: Coronary Artery Disease (CAD) Medications and Allergies Home Medications Medication Instructions Recorded Confirmed Type Aspirin [Adult Low Dose Aspirin EC] 81 mg PO DAILY 04/07/17 04/29/18 History Atorvastatin [Lipitor] 40 mg PO HS 04/07/17 04/29/18 History Carvedilol [Coreg] 6.25 mg PO BID 04/07/17 04/29/18 History Milk Thistle 150 mg PO DAILY 04/07/17 04/29/18 History Multivitamin [Multiple Vitamins] 1 each PO DAILY 04/07/17 04/29/18 History [place]-3 Fatty Acids/Fish Oil [Fish 1,000 mg PO DAILY 04/07/17 04/29/18 History Oil 1,000 mg Capsule] Calcium Carbonate/Vitamin D3 1 tab PO DAILY 04/20/18 04/29/18 History [Calcium 500-Vit D3 600 Tablet] Cyanocobalamin (Vitamin B-12) 1,000 mcg PO Q48H 04/20/18 04/29/18 History [Vitamin B-12] Hydrochlorothiazide 25 mg PO DAILY 04/20/18 04/29/18 History Hydrocodone/Acetaminophen [[place] 1 each PO Q6HR PRN #12 tab 04/20/18 04/29/18 Rx 5-325] Losartan Potassium [Cozaar] 100 mg PO DAILY 04/29/18 04/29/18 History Allergies Allergy/AdvReac Type Severity Reaction Status Date / Time nickel Allergy Rash/Hives Verified 07/26/18 08:14 Exam Vital Signs Temp Pulse BP 07/26/18 08:15 97.6 F 69 143/93 Intake and Output 07/25/18 07/26/18 07/26/18 22:59 06:59 14:59 Other: Weight 110.677 kg Height 5'7", BMI 38.2. This is a well-developed well-nourished heavyset white female who is alert and oriented times 3 in no acute distress. HEENT: Within normal limits. NECK: Supple without mass or thyromegaly. CHEST AND LUNGS: Clear to auscultation. HEART: Regular rate and rhythm. BREASTS: Are without mass or discharge. AXILLARY EXAM: Negative for adenopathy. BACK: Negative for CVA tenderness. ABDOMEN: Soft, nontender, without palpable masses. PELVIC EXAM: Normal external genitalia with mild atrophy. Cervix and vagina appear normal with mild atrophy. There is no unusual discharge. There is no evidence of prolapse. The uterus is midposition, nongravid size and nontender. There are no palpable adnexal masses or tenderness. RECTAL EXAM: rectovaginal exam is negative for mass or tenderness and is negative for occult blood. EXTREMITIES: Nontender. IMPRESSION: 1. 67-year-old menopausal female with normal gynecologic exam. 2. Previous suspicious mammogram in 2017, status post benign breast biopsy. This is her 1st mammogram since the biopsy. PLAN: 1. Pap smear was performed. 2. Self breast awareness was discussed with the patient. 3. Diagnostic bilateral mammogram will be done today. 4. Osteoporosis prevention was discussed. Because of the broken bone following a fall, her orthopedic surgeon recommended repeating bone density screening, which will be done today. 5. The patient states she will be getting her flu shot this week. 6. She will return in one year.
--- NOTE | 2018-07-26 09:52 | MM ---
Reason for exam: additional evaluation requested from prior study. Last mammogram was performed 1 year and 4 months ago. History: Patient is postmenopausal and is nulliparous. Benign MG stereo VAD BX RT of the right breast, April 08, 2017. Physical Findings: Dr. Brand did breast exam. MG 3D Diag Mammo W/Cad JUDY Bilateral CC and MLO view(s) were taken. Prior study comparison: April 02, 2017, right breast MG 3d work up w/cad RT. March 31, 2017, bilateral MG 3d screening mammo w/cad. There are scattered fibroglandular densities. Benign calcifications bilaterally. Previous mammotome biopsy in the right breat. No significant cystic or solid lesion greater than 0.50 cm. found. These results were verbally communicated with the patient and result sheet given to the patient on 07/26/18. ASSESSMENT: Benign, BI-RAD 2 RECOMMENDATION: Routine screening mammogram of both breasts in 1 year.
--- NOTE | 2018-07-26 12:11 | BD ---
EXAMINATION TYPE: Axial Bone Density DATE OF EXAM: 07/26/2018 COMPARISON: 08.06.2015 CLINICAL HISTORY: 67 YR OLD FEMALE....ICD-10 CODE: Z78.0 POST MENOPAUSE W/O HRT Height: 64.5 Weight: 241 FRAX RISK QUESTIONS: History of Fracture in Adulthood: YES RISK FACTORS HISTORY OF: FRACTURE OF LT SHOULDER....3 MOS AGO....AT 67 YRS OLD Active: YES, PRETTY MUCH Diet low in dairy products/other sources of calcium: YES, NO MILK Postmenopausal woman: 53 YRS OLD Lost more than 2 inches in height since high school: YES MEDICATIONS: Additional Medications: BP MEDS, CALCIUM AND VIT D, STATINS FOR CHOLESTEROL Additional History: SHOULDER INJURY WITH PLATES AND SCREWS EXAM MEASUREMENTS: Bone mineral densitometry was performed using the Infla[employer] System. Bone mineral density as measured about the Lumbar spine is: ----- L1-L4(G/cm2): 1.703 T Score Values are as follows: ----- L1: 1.3 ----- L2: 2.6 ----- L3: 6.3 ----- L4: 6.7 ----- L1-L4: 4.4 Bone mineral density has: Increased 0.8% since study of: 08.06.2015 Bone mineral density about the R hip (g/cm2): 1.142 Bone mineral density about the L hip (g/cm2): 1.066 T Score values are as follows: -----R Neck: 0.4 -----L Neck: -0.3 -----R Total: 1.1 -----L Total: 0.5 Bone mineral density has: Increased 3.2% since study of: 08.06.2015 FRAX%s: THERE IS A10.8% CHANCE OF A MAJOR OSTEOPOROTIC FX AND A 0.6% FOR A HIP FX.....PROBABILITY OF FX IN 10 YRS TIME IMPRESSION: Normal (Values between +1 and -1 indicate normal bone mass). Consider repeating this study in 5 year s or sooner if there is some new clinical indication. NOTE: T-SCORE=SD OF THE YOUNG ADULT MEAN.
== END ==
LOC: WWCWWP 07:51
PROVIDERS: ATTEND Obstetrics & Gynecology
DX: R92.8 Other abnormal and inconclusive findings on diagnostic imaging of breast (principal); Z78.0 Asymptomatic menopausal state
CPT/HCPCS: 77080; 77066; G0279; 77062

== ENCOUNTER → 2019-07-04 | Outpatient (CLI) | payer MEDICARE ==
[2019-07-04 09:59] VITALS: BP 121/82; PULSE 79; RESP 18; TEMP 98.3; BMI 38.3
--- NOTE | 2019-07-04 11:11 | P.HPOB ---
History of Present Illness H&P Date: 07/04/19 Chief Complaint: The patient is here for her routine gynecologic exam. This is a 68 year old with an LMP of 2005. The patient states he has noticed a slight vaginal discharge for the last 2 weeks and has been yellowish to brownish and is slightly thick at times, but can also be then at times. She has not noticed a vaginal odor. She has noticed it every day since 1st noticing it 2 weeks ago. She denies any vaginal bleeding. She has had some vulvar pruritus over the past 6 months and this usually gets better with cortisone cream. The itching does not seem to be associated with the discharge and, in fact, seems better during the past 2 weeks. She has not been sexually active for many years. Her last Pap smear on 07/26/18 was negative but did have a shift in the bacterial elina suggestive of bacterial vaginosis. Review of Systems Her weight has been stable over the past year. She denies respiratory, cardiac and G.I. problems. She denies maltreatment or problems with falling. : she denies any significant problems with urinary leakage. Past Medical History Past Medical History: Hyperlipidemia, Hypertension, Osteoarthritis (OA) Additional Past Medical History / Comment(s): varicose veins, aortic aneurysm, diverticulosis, fell and injured left shoulder 04/18/18. Her primary care physician is in [place]. PAST AUTOMOBILE MECHANIC RADIATOR HISTORY: She has no history of STDs. She has had 4- 2nd trimester miscarriages in the past. History of Any Multi-Drug Resistant Organisms: None Reported Past Surgical History: Breast Surgery, Joint Replacement, Tonsillectomy Additional Past Surgical History / Comment(s): sarah knee replacements, hemorrhoidectomy, sarah cataracts, breast biopsy,left proximal humerus, colonoscopy 2014(4th), cervical cerclages. Past Anesthesia/Blood Transfusion Reactions: No Reported Reaction Past Psychological History: No Psychological Hx Reported Smoking Status: Former smoker Past Alcohol Use History: Daily (2 per day) Additional Past Alcohol Use History / Comment(s): quit smoking 1987, smoked for 20 yrs, 1 PPD Past Drug Use History: None Reported Additional History: She has been since 1972 and is not sexually active. She is retired. She north in [facility], but is considering moving there permanently. - Past Family History Mother Family Medical History: Dementia Father Family Medical History: Myocardial Infarction ([place]) Brother(s) Family Medical History: Coronary Artery Disease (CAD) Medications and Allergies Home Medications Medication Instructions Recorded Confirmed Type Aspirin [Adult Low Dose Aspirin EC] 81 mg PO DAILY 04/07/17 07/04/19 History Atorvastatin [Lipitor] 40 mg PO HS 04/07/17 07/04/19 History Carvedilol [Coreg] 6.25 mg PO BID 04/07/17 07/04/19 History Milk Thistle 150 mg PO DAILY 04/07/17 07/04/19 History Multivitamin [Multiple Vitamins] 1 each PO DAILY 04/07/17 07/04/19 History [place]-3 Fatty Acids/Fish Oil [Fish 1,000 mg PO DAILY 04/07/17 07/04/19 History Oil 1,000 mg Capsule] Calcium Carbonate/Vitamin D3 1 tab PO DAILY 04/20/18 07/04/19 History [Calcium 500-Vit D3 600 Tablet] Cyanocobalamin (Vitamin B-12) 1,000 mcg PO Q48H 04/20/18 07/04/19 History [Vitamin B-12] Hydrochlorothiazide 25 mg PO DAILY 04/20/18 07/04/19 History Losartan Potassium [Cozaar] 100 mg PO DAILY 04/29/18 07/04/19 History Allergies Allergy/AdvReac Type Severity Reaction Status Date / Time nickel Allergy Rash/Hives Verified 07/04/19 09:59 Exam Vital Signs Temp Pulse Resp BP Pulse Ox 07/04/19 09:52 98.3 F 79 18 121/82 97 Intake and Output 07/03/19 07/04/19 07/04/19 22:59 06:59 14:59 Other: Weight 111.13 kg Height 5'7", weight 245 pounds, BMI 38.4. This is a well-developed well-nourished heavyset white female who is alert and oriented times 3 in no acute distress. HEENT: Within normal limits. NECK: Supple without mass or thyromegaly. CHEST AND LUNGS: Clear to auscultation. HEART: Regular rate and rhythm. BREASTS: Are without mass or discharge. AXILLARY EXAM: Negative for adenopathy. BACK: Negative for CVA tenderness. ABDOMEN: Soft, nontender, without palpable masses. PELVIC EXAM: Normal external genitalia with mild atrophy. Cervix and vagina appear normal with mild atrophy. There is a slight grayish thin discharge noted on inspection of the vagina. Upon swabbing it with a cotton swab, the discharge has a yellowish appearance with odor. There is no evidence of prolapse. The uterus is midposition, nongravid size and nontender. There are no palpable adnexal masses or tenderness. RECTAL EXAM: rectovaginal exam is negative for mass or tenderness and is negative for occult blood. There is no evidence of fistula with rectovaginal exam. EXTREMITIES: Nontender. IMPRESSION: 1. 68 year old menopausal female two-week history of vaginal discharge. There is a small amount of yellowish brownish discharge with odor. Probable bacterial vaginosis. PLAN: 1. Pap smear was deferred since she had a normal one on 07/26/18. 2. Self breast awareness was discussed with the patient. 3. Screening mammogram will be due on or after 07/26/19. The order for this was given to the patient. 4. MetroGel Vag , one applicator intravaginally QHS times 5 days. She was instructed to call if she does not have improvement of her vaginal discharge.If this does not respond to treatment, consider reevaluation and possible testing for enterovaginal fistula which I think is unlikely because I do not identify risk factors for this. The prescription will be sent to [facility] pharmacy on . 5. She plans to get a flu shot in the near future. 6. The patient was advised to return in 1-2 years for her well woman examination.
--- NOTE | 2019-07-11 10:51 | P.PN ---
Progress Note - Text Progress Note Date: 07/11/19 The patient was last seen last week and was experiencing vaginal discharge. She was treated with MetroGel Vag for suspected bacterial vaginosis.. She has completed the five-day course and states she continues to notice the vaginal discharge. She was instructed to make an appointment for next week for reevaluation. Because a slightly feculent odor was noticed on her examination, we will reevaluate and probably do cultures on the vaginal discharge. Will also consider additional testing for colo-vaginal fistula or rectovaginal fistula. She does have a history of diverticulosis and diverticulitis which may make [place] vaginal fistula more likely. Consider MRI of the abdomen and pelvis. She has made an appointment for next week for reevaluation. She will discontinue the MetroGel.vag.
== END | disposition home or self-care (01) ==
LOC: WWCWWP 09:44
PROVIDERS: ATTEND Obstetrics & Gynecology
DX: Z53.9 Procedure and treatment not carried out, unspecified reason (principal)

== ENCOUNTER → 2019-07-18 | Outpatient (CLI) | payer MEDICARE ==
[2019-07-18 19:40] LABS: African American GFR (CKD) 86.6 (60.0-200.0)
== END | disposition home or self-care (01) ==
LOC: LABWHC1 13:14
PROVIDERS: ATTEND Obstetrics & Gynecology
DX: N89.8 Other specified noninflammatory disorders of vagina (principal)
CPT/HCPCS: 36415; 82565; 84520; 87070

== ENCOUNTER → 2019-07-18 | Outpatient (CLI) | payer MEDICARE ==
[2019-07-18 11:56] VITALS: BP 137/81; PULSE 64; RESP 18; TEMP 98; BMI 38.2
--- NOTE | 2019-07-18 12:52 | P.PN ---
Progress Note - Text Progress Note Date: 07/18/19 Chief Complaint: Thick vaginal discharge for one month HPI: this is a 68 year old with an LMP of 2004. The patient has been having a thick vaginal discharge for about one month. She was given a prescription for MetroGel vag which did not seem to help her symptoms. The vaginal discharge was felt to be feculent with some odor. She states she has also noticed some gas passing through the vagina recently as well. She has had a history of multiple late miscarriages and was treated with a cerclage at one point many years ago. She has also had a history of diverticulitis in the past. ROS: she denies respiratory or cardiac problems. She also denies G.I. problems. She typically has regular bowel movements twice a day. PE: Blood pressure: 137/81, Height: 5'7", Weight: hundred 44 pounds, Temperature: 8.0, Pulse: 64. Pulse oximeter 98%. This is a well developed, well nourished, white female who is alert and orientedx3, in no acute distress. Pelvic examination: normal external genitalia with mild atrophy. Vagina reveals mild atrophy with a moderate amount of mustard yellow/brown thick vaginal discharge with slight odor. The cervix appears normal. Bimanual examination reveals a mid-positioned uterus which is non-gravid size and nontender. There are no palpable adnexal masses or tenderness. Rectovaginal exam: there is no palpable rectovaginal fistula. There are no rectal masses. Impression: 1. 68 year old menopausal female with a one-month history of thick vaginal discharge not improve with MetroGel vag. 2. Suspected colovaginal fistula Plan: 1. Cultures were sent from the vaginal discharge and this will include aerobic and anaerobic cultures. 2. I have recommended a CT scan of the abdomen and pelvis with rectal and IV contrast. The order slip was given to the patient for this. Time spent with the patient: 25 minutes
--- NOTE | 2019-07-25 17:08 | P.PN ---
Progress Note - Text Progress Note Date: 07/25/19 OUTPATIENT FOLLOW-UP NOTE TEST(S)/RESULTS: Vaginal culture from 07/18/2019 showed normal genital elina. Anaerobic culture was not performed by the lab. The lab states anaerobic cultures and done on vaginal specimens. METHOD OF NOTIFICATION: The patient was notified by phone. PATIENT COMMENTS: She continues to have the abnormal discharge. DIAGNOSIS: Abnormal vaginal discharge with vaginal culture showing normal genital elina. Suspected colovaginal fistula. DISCUSSION: The day this culture was performed, the odor was not prominent. Her examination done earlier in the month did reveal brownish/yellowish discharge with a feculent odor. PLAN: Proceed with computed tomography scan of the abdomen and pelvis as ordered. She is scheduled for this on 07/28/2019.
--- NOTE | 2019-08-01 13:14 | P.PN ---
Progress Note - Text Progress Note Date: 08/01/19 OUTPATIENT FOLLOW-UP NOTE TEST(S)/RESULTS: CT scan of the abdomen and pelvis done on 07/28/2019 does not show any signs of a rectovaginal fistula. However, there is evidence of a localized perforation associated with extensive colonic diverticular disease. I have reviewed this with the radiologist, Dr. Shelton, who pointed out extraluminal air bubbles at the mid-sigmoid colon adjacent to the uterus. She does not see any discrete tract into the uterine cavity. METHOD OF NOTIFICATION: The patient was notified by phone. PATIENT COMMENTS: The patient denies any fever or abdominal pain. Her main symptom has been unusual vaginal discharge for 4 weeks. DIAGNOSIS: Unusual vaginal discharge, possible colo-uterine fistula with extensive diverticular disease and history of diverticulitis. Besides the vaginal discharge, the patient is otherwise asymptomatic. DISCUSSION: I have recommended follow-up with a general surgeon for possible colon resection. She states she has recently sold her home in [facility] and is planning to move to [place] in the very near future. She states she would like to follow-up with somebody in [place] for this. We have discussed how a localized perforation can possibly become much more severe and making the situation more urgent. She was instructed to find immediate medical attention if she develops abdominal pain, fever, or problems. I have asked our radiology Department to make a disc with the CT scan images that she can take to a general surgeon of her choice. She will pick this up this week. PLAN: General surgeon evaluation for extensive diverticular disease with possible diverticulitis and suspected localized perforation with possible colo-uterine fistula.
== END | disposition home or self-care (01) ==
LOC: WWCWWP 11:30
PROVIDERS: ATTEND Obstetrics & Gynecology
DX: Z53.9 Procedure and treatment not carried out, unspecified reason (principal)

== ENCOUNTER → 2019-07-28 | Outpatient (CLI) | payer MEDICARE ==
--- NOTE | 2019-07-29 14:45 | CT ---
EXAMINATION TYPE: CT abdomen pelvis w con DATE OF EXAM: 07/28/2019 COMPARISON: None HISTORY: Colon vaginal fistula. Rectal contrast. CT DLP: 1881 mGycm Automated exposure control for dose reduction was used. TECHNIQUE: Helical acquisition of images was performed from the lung bases through the pelvis. CONTRAST: Performed with Oral Contrast and with IV Contrast, patient injected with 100ml mL of Isovue 300. FINDINGS: Multiple axial sections were obtained from the diaphragm to the floor the pelvis with intravenous and rectal contrast. There is some mild fibrotic changes at the lung bases. There is no pleural effusion. There is no becky cardial effusion. Liver spleen pancreas gallbladder appear normal. Bile ducts are not dilated. Stomach appears normal. There is no pancreatic mass. There is no adrenal mass. Kidneys show satisfactory contrast opacification. There is no hydronephrosi s. There is no retroperitoneal adenopathy. Ureters are not dilated. Bladder distends smoothly. There is no inguinal hernia. There are numerous diverticula in the sigmoid colon with wall thickening. Ther e is mild fat stranding around the distal sigmoid colon. Uterus is anteverted. I see no evidence of f luid or mass in the vagina. There is no contrast in the vagina. There are numerous phleboliths in the pelvis. There is no sign of pneumoperitoneum. There are diverticula in the right colon. There is no sign of a bowel obstruction. Small bowel is not dilated. The bony pelvis is intact. There are spondylotic paez ges in the lower lumbar spine. There is no compression fracture. IMPRESSION: EXTENSIVE COLONIC DIVERTICULOSIS WITH SOME CHANGES OF MILD DIVERTICULITIS IN THE DISTAL SIGMOID COLON . WALL THICKENING OF THE MID SIGMOID COLON CONSISTENT WITH COLITIS. EXTRALUMINAL AIR BUBBLES AT THE M ID SIGMOID COLON RELATED TO DIVERTICULITIS AND LOCALIZED PERFORATION. NO SIGN OF A RECTOVAGINAL FISTU LA.
== END ==
LOC: RADCTMAIN 17:08
PROVIDERS: ATTEND Obstetrics & Gynecology
DX: N89.8 Other specified noninflammatory disorders of vagina (principal); K57.30 Diverticulosis of large intestine without perforation or abscess without bleeding; K57.32 Diverticulitis of large intestine without perforation or abscess without bleeding; R93.3 Abnormal findings on diagnostic imaging of other parts of digestive tract
CPT/HCPCS: 74177; Q9967 ×2

== ENCOUNTER → 2019-08-04 | Outpatient (CLI) | payer MEDICARE ==
--- NOTE | 2019-08-07 09:32 | MM ---
Reason for exam: screening (asymptomatic). Last mammogram was performed 1 year ago. History: Patient is postmenopausal and is nulliparous. Benign MG stereo VAD BX RT of the right breast, April 08, 2017. Physical Findings: A clinical breast exam by your physician is recommended on an annual basis and results should be correlated with mammographic findings. MG 3D Screening Mammo W/Cad Bilateral CC, MLO, and XCCL view(s) were taken. Prior study comparison: July 26, 2018, bilateral MG 3d diag mammo w/cad JUDY. April 02, 2017, right breast MG 3d work up w/cad RT. There are scattered fibroglandular densities. There are increased regional calcifications in the right breast mostly of the central outer breast. Right biopsy marker is associated with these calcifications. Benign appearing left breast calcifications. ASSESSMENT: Incomplete: need additional imaging evaluation, BI-RAD 0 RECOMMENDATION: Special view mammogram of the right breast. [facility] will attempt to contact patient to return for supplemental views.
== END | disposition home or self-care (01) ==
LOC: RADMAMWWP 07:53
PROVIDERS: ATTEND Obstetrics & Gynecology
DX: Z12.31 Encounter for screening mammogram for malignant neoplasm of breast (principal)
CPT/HCPCS: 77063; 77067

== ENCOUNTER → 2019-08-18 | Outpatient (CLI) | payer MEDICARE ==
--- NOTE | 2019-08-18 14:31 | MM ---
Reason for exam: additional evaluation requested from abnormal screening. Last mammogram was performed less than 1 month ago. History: Patient is postmenopausal and is nulliparous. Benign MG stereo VAD BX RT of the right breast, April 08, 2017. Physical Findings: Nurse did not find any significant physical abnormalities on exam. MG 3D Work Up W/Cad RT CC with magnification, ML with magnification, and ML view(s) were taken of the right breast. Prior study comparison: August 04, 2019, bilateral MG 3d screening mammo w/cad. July 26, 2018, bilateral MG 3d diag mammo w/cad JUDY. Finding: There are typically benign round, regional calcifications in the right breast. Previous mammotome biopsy in the right breast. No suspicious calcifications persist on additional views. These results were verbally communicated with the patient and result sheet given to the patient on 08/18/19. ASSESSMENT: Benign, BI-RAD 2 RECOMMENDATION: Return to routine screening mammogram schedule for both breasts.
== END | disposition home or self-care (01) ==
LOC: RADMAMWWP 13:35
PROVIDERS: ATTEND Obstetrics & Gynecology
DX: R92.8 Other abnormal and inconclusive findings on diagnostic imaging of breast (principal)
CPT/HCPCS: 77065; G0279; 77061